=== PATIENT | female | born 1995 | race Caucasian/White ===

== ENCOUNTER 2021-05-09 10:50 | Inpatient (IN) | payer OTHER, SELFPAY ==
[2021-05-09] VITALS (73 sets, daily range): BP systolic 101–134; BP diastolic 42–96; PULSE 82–113; TEMP 36.5–37.1; O2SAT 84–100; BMI 39.2
--- NOTE | 2021-05-09 11:15 | OBADM ---
This patient, Julianne Marie, admitted to the OB room 116 on 05/09/21 at 1050 for observation for contractions. Patient/family oriented to hospital policies and general routines including ID bracelet, bed and alarms, visiting hours, pain management, procedures, bathroom and other care routines, personal items, smoking policy, room service/diet, and visiting hours. Patient/Family are encouraged to report perceived risks to care and to ask questions if they do not understand what they are told or what they should do.
[2021-05-09] MEDS: LACTATED RINGERS 1,000 ML 999 ML IV CONT (11:44)
[2021-05-09] MEDS: Please add drug allergy info to patient profile. 1 EACH XX (11:51)
[2021-05-09] MEDS: TERBUTALINE SULFATE 1 MG/ML VIAL 0.25 MG SUB-Q ×2 (12:45→13:46)
[2021-05-09] MEDS: LACTATED RINGERS 1,000 ML 125 ML IV CONT (12:46)
[2021-05-09] MEDS: NIFEdipine 10 MG CAPSULE PO ×2 (16:11→16:42)
[2021-05-09] MEDS: MAGNESIUM SULF 4 GM/WATER100ML 4 GM/100 ML BAG IVPB (19:00)
[2021-05-09] MEDS: BETAMETHASONE SOD PHOS/ACETATE 30 MG/5 ML VIAL 12 MG IM (19:16)
[2021-05-09] MEDS: MAGNESIUM SULF 20GM/WATER500ML 500 ML 50 MG IV CONT (19:30)
[2021-05-09 20:01] LABS: Basophils Percent Auto 0.2 % (0.2-1.2); Eosinophils Percent Auto 0.1 % (0-4.4); Hematocrit 35.4 % (37.0-47.0); Hemoglobin 10.9 g/dL (12.0-15.0); Immature Granulocyte Absolute 0.13 K/mm3 (0.00-0.031); Immature Granulocyte Percent A 0.9 % (0-0.5); Lymphocytes Absolute Auto 1.74 K/mm3 (0.9-3.2); Mean Corpuscular HGB Conc 30.8 g/dl (32-36); Mean Corpuscular Hemoglobin 27.3 pg (26-34); Mean Corpuscular Volume 88.7 fl (80-100); Mean Platelet Volume 10.8 fl (7.4-10.4); Monocytes Absolute Auto 0.6 K/mm3 (0.1-0.6); Monocytes Percent Auto 4.1 % (2.6-8.5); Neutrophils Percent Auto 82.7 % (45.5-73.1); Platelet Count Result 161 k/mm3 (150-375); Red Blood Count 3.99 M/mm3 (4.2-5.4); Red Cell Distribution Width 15.4 % (11.5-14.5); White Blood Count 14.5 K/mm3 (4.5-10.0)
[2021-05-09 20:05] LABS: Add Urine Microscopic? YES; Appearance Urine Clear (Clear); Bacteria Urine Trace /hpf; Bilirubin Urine Negative (Negative); Blood Urine Negative (Negative); Color Urine Yellow (Yellow); Glucose Urine UA Negative (Negative); Ketones Urine 2+ mg/dL (Negative); Leukocyte Esterase Ur Negative LEU/UL (Negative); Mucus Urine Rare /lpf; Nitrate Urine Negative (Negative); Protein Urine Negative (Negative); RBC Urine 0-2 /hpf (0-2); Specific Grav Ur 1.013 (1.001-1.035); Squamous Epithelial Cell Urine Rare /hpf (Few); Urobilinogen Urine Negative mg/dL (<2.0); WBC Urine 0-3 /hpf
[2021-05-09 20:50] LABS: Alanine Aminotransferase 15 U/L (4-35); Albumin Level 3.4 g/dL (3.5-5.1); Alkaline Phosphatase 110 U/L (38-126); Anion Gap 8 mmol/L (8-16); Aspartate Amino Transferase 19 U/L (14-36); Bilirubin,Total 0.4 mg/dL (0.2-1.3); Blood Urea Nitrogen 4 mg/dL (7-17); Calcium 9.2 mg/dL (8.4-10.2); Carbon Dioxide 23 mmol/L (22-30); Chloride 104 mmol/L (98-107); Estimated CRCL calculation 210 ml/min; Estimated Glomerular Filt Rate > 60; Glucose 68 mg/dL (65-110); Potassium 3.8 mmol/L (3.4-5.0); Sodium 135 mmol/L (137-145)
[2021-05-09] MEDS: DOCUSATE SODIUM 100 MG CAPSULE PO (23:41)
[2021-05-09] MEDS: fentaNYL CITRATE INJ (*CRX) 100 MCG/2 ML VIAL 50 MCG IV PUSH (23:41)
[2021-05-10] VITALS (109 sets, daily range): BP systolic 82–128; BP diastolic 41–73; PULSE 66–121; RESP 14–20; TEMP 36.2–37; O2SAT 92–100
[2021-05-10] MEDS: fentaNYL CITRATE INJ (*CRX) 100 MCG/2 ML VIAL 50 MCG IV PUSH (02:22)
--- NOTE | 2021-05-10 03:19 | PM.IMHP ---
H&P: HPI History of Present Illness Date/Time: 05/10/21 03:19 26 y/o at 35 weeks here with contractions. Prior , desires repeat. Also desires permanent contraception with tubal ligation. GBS unknown. Contractions initially treated with terbutaline, then nifedipine. No adequate response, so she was given magnesium sulfate IV and betamethasone. Contractions worsened nonetheless. Magnesium was increased to 3 g/h, and contractions continued every 3 min painfully. Cervix changed to 2 cm. Chief Complaint: Contractions Review of Systems Review of Systems: All systems reviewed & are unremarkable except as noted in HPI and below [facility] Past Medical History Medical History (Updated 05/10/21 @ 03:27 by Andrade Dennis MD) Bicornuate uterus Surgical History Surgical History (Updated 05/10/21 @ 03:27 by Andrade Dennis MD) History of 3 sections Meds Home Medications and Allergies Home Medications Medication Instructions Recorded Confirmed Type PNV cmb#95-ferrous fumarate-FA 1 tablet PO DAILY 05/09/21 05/09/21 History [] ferrous sulfate 325 mg PO DAILY 05/09/21 05/09/21 History folic acid 1 mg PO DAILY 05/09/21 05/09/21 History Allergies Allergy/AdvReac Type Severity Reaction Status Date / Time cefaclor [From Ceclor] Allergy Rash Verified 05/09/21 11:50 erythromycin base Allergy Rash Verified 05/09/21 11:50 Vital Signs Vital Signs - 24 hr 05/09/21 11:11 05/09/21 11:15 05/09/21 12:00 Temperature 36.6 C Pulse Rate 84 90 Blood Pressure 112/50 L 115/63 Pulse Oximetry 05/09/21 12:44 05/09/21 12:50 05/09/21 12:54 Temperature 36.5 C 36.5 C Pulse Rate 84 Blood Pressure 115/54 L Pulse Oximetry 05/09/21 13:00 05/09/21 13:46 05/09/21 14:00 Temperature Pulse Rate 93 99 99 Blood Pressure 119/44 L 108/54 L 102/42 L Pulse Oximetry 05/09/21 15:00 05/09/21 16:00 05/09/21 16:09 Temperature Pulse Rate 99 89 93 Blood Pressure 107/48 L 106/46 L 105/50 L Pulse Oximetry 05/09/21 16:10 05/09/21 16:11 05/09/21 16:42 Temperature 37.1 C Pulse Rate 93 102 H Blood Pressure 105/50 L 113/50 L Pulse Oximetry 05/09/21 17:00 05/09/21 18:00 05/09/21 19:00 Temperature 36.8 C Pulse Rate 95 96 Blood Pressure 125/54 L 114/59 L Pulse Oximetry 05/09/21 19:06 05/09/21 19:10 05/09/21 19:15 Temperature Pulse Rate 92 96 92 Blood Pressure 131/62 122/56 L 122/55 L Pulse Oximetry 05/09/21 19:20 05/09/21 19:25 05/09/21 19:30 Temperature 36.7 C Pulse Rate 92 90 90 Blood Pressure 133/96 H 125/47 L 115/68 Pulse Oximetry 84 L 100 05/09/21 19:35 05/09/21 19:40 05/09/21 19:45 Temperature Pulse Rate 92 90 97 Blood Pressure 130/59 L 123/64 128/66 Pulse Oximetry 99 99 97 05/09/21 19:50 05/09/21 19:55 05/09/21 20:00 Temperature Pulse Rate 93 95 Blood Pressure 130/59 L 134/64 Pulse Oximetry 100 100 100 05/09/21 20:02 05/09/21 20:09 05/09/21 20:14 Temperature Pulse Rate 94 Blood Pressure 121/63 Pulse Oximetry 100 100 05/09/21 20:19 05/09/21 20:24 05/09/21 20:29 Temperature Pulse Rate Blood Pressure Pulse Oximetry 100 100 99 05/09/21 20:30 05/09/21 20:34 05/09/21 20:39 Temperature Pulse Rate 86 Blood Pressure 112/66 Pulse Oximetry 100 99 05/09/21 20:44 05/09/21 20:49 05/09/21 20:59 Temperature Pulse Rate Blood Pressure Pulse Oximetry 99 100 100 05/09/21 21:00 05/09/21 21:04 05/09/21 21:09 Temperature Pulse Rate 84 Blood Pressure 124/52 L Pulse Oximetry 100 100 05/09/21 21:14 05/09/21 21:19 05/09/21 21:24 Temperature Pulse Rate Blood Pressure Pulse Oximetry 99 100 98 05/09/21 21:29 05/09/21 21:30 05/09/21 21:34 Temperature Pulse Rate 86 Blood Pressure 101/46 L Pulse Oximetry 98 98 05/09/21 21:39 05/09/21 21:44 05/09/21 21:49 Temperature Pulse Rate Blood Pressure
--- NOTE | 2021-05-10 03:24 | WPDANESEPPF ---
Anes - Initial Pre Proc Eval Procedure: Operation Date: 05/10/21 03:45 Proposed Procedures p Section - Andrade Dennis MD Date/Time: 05/10/21 03:24 Surgeon: Andrade Dennis MD Pre Op Diagnosis: Contractions Patient Data Age: 26 Gender: F Height: 1.65 m Weight: 106.8 kg Last Vital Signs Temp 36.7 C 05/09/21 19:30 Pulse 95 05/09/21 22:30 BP 129/55 L 05/09/21 22:30 Pulse Ox 100 05/10/21 03:19 Allergies Allergy/AdvReac Type Severity Reaction Status Date / Time cefaclor [From Ceclor] Allergy Rash Verified 05/09/21 11:50 erythromycin base Allergy Rash Verified 05/09/21 11:50 Home Medications Medication Instructions Recorded Confirmed Type PNV cmb#95-ferrous fumarate-FA 1 tablet PO DAILY 05/09/21 05/09/21 History [] ferrous sulfate 325 mg PO DAILY 05/09/21 05/09/21 History folic acid 1 mg PO DAILY 05/09/21 05/09/21 History Laboratory Tests 05/09/21 05/09/21 05/09/21 19:05 19:05 19:05 WBC 14.5 K/mm3 H K/mm3 (4.5-10.0) RBC 3.99 M/mm3 L M/mm3 (4.2-5.4) Hgb 10.9 g/dL L g/dL (12.0-15.0) Hct 35.4 % L % (37.0-47.0) MCV 88.7 fl fl (80-100) MCH 27.3 pg pg (26-34) MCHC 30.8 g/dl L g/dl (32-36) RDW 15.4 % H % (11.5-14.5) Plt Count 161 k/mm3 k/mm3 (150-375) MPV 10.8 fl H fl (7.4-10.4) Immature Gran % (Auto) 0.9 % H % (0-0.5) Neut % (Auto) 82.7 % H % (45.5-73.1) Lymph % (Auto) 12.0 % L % (18.3-44.2) [place] % (Auto) 4.1 % % (2.6-8.5) Eos % (Auto) 0.1 % % (0-4.4) Baso % (Auto) 0.2 % % (0.2-1.2) Lymph # (Auto) 1.74 K/mm3 K/mm3 (0.9-3.2) [place] # (Auto) 0.6 K/mm3 K/mm3 (0.1-0.6) Eos # (Auto) 0.0 K/mm3 K/mm3 (0-0.3) Baso # (Auto) 0.0 K/mm3 K/mm3 (0.0-0.1) Abs Immat Gran (auto) 0.13 K/mm3 H K/mm3 (0.00-0.031) Absolute Neuts (auto) 12.0 K/mm3 H K/mm3 (1.3-6.7) Absolute Nucleated RBC 0.0 K/mm3 K/mm3 (0.0-0.012) Nucleated RBC % 0.0 % % (0.0-0.2) Sodium 135 mmol/L L mmol/L (137-145) Potassium 3.8 mmol/L mmol/L (3.4-5.0) Chloride 104 mmol/L mmol/L (98-107) Carbon Dioxide 23 mmol/L mmol/L (22-30) Anion Gap 8 mmol/L mmol/L (8-16) BUN 4 mg/dL L mg/dL (7-17) Creatinine 0.40 mg/dL L mg/dL (0.7-1.0) Estim Creat Clear Calc 210 ml/min ml/min Estimated GFR > 60 (59 - ) Glucose 68 mg/dL mg/dL (65-110) Calcium 9.2 mg/dL mg/dL (8.4-10.2) Total Bilirubin 0.4 mg/dL mg/dL (0.2-1.3) AST 19 U/L U/L (14-36) ALT 15 U/L U/L (4-35) Alkaline Phosphatase 110 U/L U/L (38-126) Total Protein 6.0 g/dL L g/dL (6.3-8.2) Albumin 3.4 g/dL L g/dL (3.5-5.1) Urine Color Yellow (Yellow) Urine Appearance Clear (Clear) Urine pH 6.0 (5.0-9.0) Ur Specific [place] 1.013 (1.001-1.035) Urine Protein Negative mg/dL mg/dL (Negative) Urine Glucose (UA) Negative mg/dL mg/dL (Negative) Urine Ketones 2+ mg/dL H mg/dL (Negative) Ur Blood (Man) Negative (Negative) Urine Nitrate Negative (Negative) Urine Bilirubin Negative (Negative) Urine Urobilinogen Negative mg/dL mg/dL (<2.0) Leukocyte Esterase Rfl Negative ELSI/UL ELSI/UL (Negative) Urine RBC 0-2 /hpf /hpf (0-2) Urine WBC 0-3 /hpf /hpf Ur Squamous Epith Cells Rare /hpf /hpf (Few) Urine Bacteria Trace /hpf /hpf Urine Mucus Rare /lpf /lpf Patient hx anesthesia problems: none Family hx anesthesia problems: none [facility] Past Medical History Medical History (Reviewed 05/10/21 @ 03:24 by Sandra Gipson
--- NOTE | 2021-05-10 03:30 | WPDHPUPDATE1 ---
History and Physical Update Update Date/Time: 05/10/21 03:30 History and Physical has been reviewed, including an updated exam of the patient. There are NO changes in the patient's condition. Risks, benefits, and alternatives have been discussed and questions answered. Patient agrees to proceed with procedure.
[2021-05-10] MEDS: AMPICILLIN 2 GM/NS 100 ML 2 GM/100 ML BAG IVPB (03:46)
[2021-05-10] MEDS: KETOROLAC 30 MG/ML VIAL (*BKC) IV PUSH (05:15)
--- NOTE | 2021-05-10 05:18 | SUR.PHASEI ---
Pt has 700 ml remaining of 1000 LR with 20 units Pitocin
--- NOTE | 2021-05-10 05:21 | PM.OBPRVD ---
OB - Delivery Note Procedure Delivery date: 05/10/21 Procedure: Procedures Operation Date: 05/10/21 03:45 <No data on this case meets the specified criteria> Repeat low transverse delivery Bilateral tubal ligation via modified [place] technique events: Labor < 37 Weeks Intrapartal events: None Induction method: none Delivery monitor: external FHT and external uterine Route of delivery: Specimen: Yes (cord blood, placenta, segments of bilateral Fallopian tubes) Quantitative Blood Loss (ml): 815 Anesthesia type: Spinal Disposition: PACU Complications: None Narrative: Findings: Female in footling breech presentation. Bicornuate uterus with in the left uterine horn. Normal-appearing tubes and ovaries. Procedure: The patient was taken to the operating room where she was prepared and draped in the usual sterile fashion in dorsal supine position with a leftward tilt. She received ampicillin preoperatively. Spinal anesthesia was found to be adequate. A Pfannenstiel skin incision was made along the previous scar line and was carried through to the underlying layer of the fascia. The fascia was incised in the midline and the incision was extended laterally. The fascia was dissected free of the underlying rectus muscles. The rectus muscles were in the midline. The peritoneum was identified, tented up and entered sharply. The peritoneal incision was extended superiorly and inferiorly with good visualization of the bladder. The bladder blade was placed. The vesicouterine peritoneum was identified, tented up and entered sharply. The incision was extended laterally and the bladder flap was developed. The bladder blade was replaced. The uterus was then incised sharply in a transverse fashion along the lower uterine segment. The incision was extended laterally. Clear amniotic fluid was noted. The feet were grasped and the breech was delivered to the level of the scapulae. The arms were swept across the chest and delivered. The head was gently flexed and easily delivered. A loose nuchal cord was reduced. The nose and mouth were bulb suctioned. After a delay, the cord was clamped and cut. The was handed off the field. Cord blood was collected. The placenta was removed manually and was passed off the field. The uterus was exteriorized and cleared of all clots and debris. The uterine incision was reapproximated using 0 Monocryl in a running, locked fashion. Excellent hemostasis resulted as did excellent reapproximation of the normal anatomy. The left fallopian tube was then identified by following it out to the fimbriated end. It was grasped in the midportion with a [place] clamp and a loop of tube was ligated with a free tie of 0 plain gut. The tubal segment was then transected and the specimen was passed off to be sent to pathology. Hemostasis was excellent. Attention was turned to the right fallopian tube which was similarly identified, ligated and transected. Once again, excellent hemostasis resulted. The uterus was returned the abdomen. The pelvis was irrigated copiously with warmed normal saline. Rigorous hemostasis was assured. The fascial layer was reapproximated using 0 Vicryl in a running fashion. The skin was closed with a running, subcuticular stitch of 4 0 Vicryl. Dermaflex was applied externally. Sponge, lap, needle and instrument counts were correct. The patient was taken to the recovery room in stable condition. The went to the nursery in stable condition. I was present and scrubbed the entire procedure. [place] Baby Date of : 05/10/21 Time of : 04:35 Weeks of gestation at delivery: 35 Infant gender: Female Weight (pounds): 6 Weight (ounces): 5 presentation: breech Placenta delivery description: Manual Removal and Normal Configuration cord vessel description: 3 Vessels, Nuchal Cord and Delayed Cord Clamping score on
--- NOTE | 2021-05-10 05:27 | PM.OBDSVD ---
DS: Admitting Diagnosis Admitting Diagnosis Admitting Diagnosis: IUP at 35 weeks labor Prior Desired sterility DS: Discharge Diagnosis Discharge Diagnosis (1) Unwanted fertility: Code(s): Z30.09 - Encounter for other general counseling and advice on contraception Status: Acute (2) labor in third trimester: Code(s): O60.03 - labor without delivery, third trimester Status: Acute (3) Bicornuate uterus: Code(s): Q51.3 - Bicornate uterus Status: Chronic OB - DS: Summary OB Procedures : None OB Procedures Intrapartum: OB Procedures: : None Peripartum Data Procedures: Procedures Operation Date: 05/10/21 03:45 <No data on this case meets the specified criteria> Repeat LTCS with BTL DS: Data Data Completed and Pending Labs on day of discharge: Labs from last 24 hours 05/10/21 05/09/21 05/09/21 03:27 19:05 19:05 WBC RBC Hgb Hct MCV MCH MCHC RDW Plt Count MPV Immature Gran % (Auto) Neut % (Auto) Lymph % (Auto) [place] % (Auto) Eos % (Auto) Baso % (Auto) Lymph # (Auto) [place] # (Auto) Eos # (Auto) Baso # (Auto) Abs Immat Gran (auto) Absolute Neuts (auto) Absolute Nucleated RBC Nucleated RBC % Sodium 135 L Potassium 3.8 Chloride 104 Carbon Dioxide 23 Anion Gap 8 BUN 4 L Creatinine 0.40 L Estim Creat Clear Calc 210 Estimated GFR > 60 Glucose 68 Calcium 9.2 Total Bilirubin 0.4 AST 19 ALT 15 Alkaline Phosphatase 110 Total Protein 6.0 L Albumin 3.4 L Urine Color Yellow Urine Appearance Clear Urine pH 6.0 Ur Specific [place] 1.013 Urine Protein Negative Urine Glucose (UA) Negative Urine Ketones 2+ H Ur Blood (Man) Negative Urine Nitrate Negative Urine Bilirubin Negative Urine Urobilinogen Negative Leukocyte Esterase Rfl Negative Urine RBC 0-2 Urine WBC 0-3 Ur Squamous Epith Cells Rare Urine Bacteria Trace Urine Mucus Rare Blood Type A Positive Antibody Screen Negative 05/09/21 19:05 WBC 14.5 H RBC 3.99 L Hgb 10.9 L Hct 35.4 L MCV 88.7 MCH 27.3 MCHC 30.8 L RDW 15.4 H Plt Count 161 MPV 10.8 H Immature Gran % (Auto) 0.9 H Neut % (Auto) 82.7 H Lymph % (Auto) 12.0 L [place] % (Auto) 4.1 Eos % (Auto) 0.1 Baso % (Auto) 0.2 Lymph # (Auto) 1.74 [place] # (Auto) 0.6 Eos # (Auto) 0.0 Baso # (Auto) 0.0 Abs Immat Gran (auto) 0.13 H Absolute Neuts (auto) 12.0 H Absolute Nucleated RBC 0.0 Nucleated RBC % 0.0 Sodium Potassium Chloride Carbon Dioxide Anion Gap BUN Creatinine Estim Creat Clear Calc Estimated GFR Glucose Calcium Total Bilirubin AST ALT Alkaline Phosphatase Total Protein Albumin Urine Color Urine Appearance Urine pH Ur Specific [place] Urine Protein Urine Glucose (UA) Urine Ketones Ur Blood (Man) Urine Nitrate Urine Bilirubin Urine Urobilinogen Leukocyte Esterase Rfl Urine RBC Urine WBC Ur Squamous Epith Cells Urine Bacteria Urine Mucus Blood Type Antibody Screen Discharge Plan Discharge Attending physician on discharge: Andrade Dennis Discharging Clinician: Andrade Dennis Patient Disposition: Home, Self-Care Activity: may shower, may drive after 2 weeks and pelvic rest Diet: regular Wound Care Instructions: incision open to air Discharge Instructions: Call or return if temperature above 100.4? F, increased abdominal pain, increased vaginal bleeding or any new problems. Stand Alone Forms: General Discharge Information Follow-up/Referrals: Andrade Dennis MD [Physician] - 4 Weeks Discharge Medications: New hydrocodone-acetaminophen 5-325 mg tablet 1 - 2 tablet PO Q6H PRN (Reason: pain) Qty: 30 RF: 0 ibuprofen 600 mg tablet 600 mg PO Q6H PRN (Reason: cramps) Qty: 30 RF: 0 f
[2021-05-10] MEDS: LACTATED RINGERS 1,000 ML 125 ML IV CONT (06:57)
[2021-05-10] MEDS: diphenhydrAMINE HCl INJ 50 MG/ML VIAL 25 MG IV PUSH (07:18)
[2021-05-10] MEDS: LORATADINE 10 MG TABLET PO (07:24)
--- NOTE | 2021-05-10 07:37 | PC.NURSE ---
Pt taken into nursery per stretcher to see prior to moving up to mom/baby unit.
--- NOTE | 2021-05-10 08:14 | PC.NURSE ---
Patient transferred to post room #282 via stretcher from labor and delivery. Support person present. Oriented to unit, room, information board, rooming in, admission packet and security measures. Patient verbalizes understanding.
[2021-05-10] MEDS: OXYTOCIN 30 UNITS/NS 500 ML 30 UNITS/500 ML BAG 125 UNITS IV CONT (08:35)
--- NOTE | 2021-05-10 12:34 | WPDANLDNPN2 ---
Anes-Prog Note L&D-Neuraxial Date/Time: 05/10/21 12:34 Neuraxial medications: intrathecal PF morphine Opiod-related complaints: none Patient feedback: Patient satisfied with post-operative pain management.
--- NOTE | 2021-05-10 12:34 | WPDANLDPN2 ---
Anes-Prog Note L&D Date/Time: 05/10/21 12:34 Comfortable throughout: section Neuraxial method: spinal Epidural/Spinal procedure site: clean & non-tender Neuro status: Neuro function grossly intact. Cardiovascular status: normal Respiratory status: normal Airway patency: baseline Mental status: baseline Post-Op hydration status: normal Vital Signs: Last Vital Signs Temp 37.0 C 05/10/21 08:25 Pulse 76 05/10/21 08:25 Resp 16 05/10/21 08:25 BP 117/56 L 05/10/21 08:25 Pulse Ox 98 05/10/21 08:25 Pain score (VAS): 0 I/O: Intake & Output 05/09/21 05/10/21 05/10/21 23:59 07:59 15:59 Intake Total 100 1663 Output Total 2238 Balance 100 -575 Post-procedural complaints: none Patient feedback: Patient satisfied with anesthetic care.
[2021-05-10] MEDS: DOCUSATE SODIUM 100 MG CAPSULE PO (16:42)
[2021-05-10] MEDS: IBUPROFEN 600 MG TABLET PO (16:43)
[2021-05-10] MEDS: DEXTROSE 5%/0.45% SOD CHL 1,000 ML 125 ML IV CONT (20:27)
[2021-05-10] MEDS: SIMETHICONE 80 MG TAB.CHEW PO (20:36)
[2021-05-11] MEDS: HYDROcodone/acetaminophen (*CRX) 5-325 MG TABLET 1 TAB PO ×2 (01:16→15:50)
[2021-05-11] MEDS: IBUPROFEN 600 MG TABLET PO ×3 (01:16→15:51)
[2021-05-11 03:50] VITALS: BP 95/43; PULSE 64; RESP 16; TEMP 36.9; O2SAT 96
[2021-05-11] MEDS: KCL 20 MEQ/D5/0.45% SOD CHL 1,000 ML 125 ML IV CONT (04:01)
[2021-05-11 07:30] VITALS: BP 97/40; PULSE 77; RESP 16; TEMP 37.1; O2SAT 99
[2021-05-11] MEDS: MULTIVIT/MIN/PREN/FOL AC/IRON TABLET 1 TAB PO (08:08)
[2021-05-11] MEDS: SIMETHICONE 80 MG TAB.CHEW PO ×2 (08:09→15:53)
[2021-05-11] MEDS: POLYSACCHARIDE IRON COMPLEX 150 MG CAPSULE PO ×2 (08:09→15:50)
[2021-05-11] MEDS: DOCUSATE SODIUM 100 MG CAPSULE PO ×2 (08:09→15:50)
[2021-05-11 08:23] LABS: Basophils Percent Auto 0.3 % (0.2-1.2); Eosinophils Absolute Auto 0.1 K/mm3 (0-0.3); Eosinophils Percent Auto 0.4 % (0-4.4); Hematocrit 30.7 % (37.0-47.0); Hemoglobin 9.6 g/dL (12.0-15.0); Immature Granulocyte Absolute 0.22 K/mm3 (0.00-0.031); Immature Granulocyte Percent A 1.7 % (0-0.5); Lymphocytes Percent Auto 21.8 % (18.3-44.2); Mean Corpuscular HGB Conc 31.3 g/dl (32-36); Mean Corpuscular Hemoglobin 27.9 pg (26-34); Mean Corpuscular Volume 89.2 fl (80-100); Mean Platelet Volume 10.2 fl (7.4-10.4); Monocytes Absolute Auto 0.7 K/mm3 (0.1-0.6); Monocytes Percent Auto 5.2 % (2.6-8.5); Neutrophils Percent Auto 70.6 % (45.5-73.1); Platelet Count Result 151 k/mm3 (150-375); Red Blood Count 3.44 M/mm3 (4.2-5.4); Red Cell Distribution Width 15.8 % (11.5-14.5); White Blood Count 12.8 K/mm3 (4.5-10.0)
--- NOTE | 2021-05-11 08:30 | PC.NURSE ---
Consult with pt., mother states infant has had issues with latching and maintaining latch. Mother breastfed 3 other children without issues and is concerned is not latching. Discussed mothers of infants may have challenges of establishing . Infants born early often have less stamina and may be sleepier, have more difficulties with latch, suck and swallow, maintaining body temperature. The potential problem for ?s having difficulties establishing are at risk for weight loss, slow weight gain, dehydration, low blood sugar, low body temperature and jaundice. Potential problems for mother of early infants are establishing a good milk supply due to lack of adequate stimulation of supply. Mother has been given a hospital pump and is pumping at times. Suggested mother attempt infant to breast each feeding, then supplement as ICP has ordered and pump for 15 minutes to stimulate supply. Requested mother call out next feeding for observation.
--- NOTE | 2021-05-11 08:45 | P.PNOB_ITS ---
OB - PN: Subj Subjective Date/time seen: 05/11/21 0845 Narrative: Pain OK. Tolerating diet. OB - PN: Obj Data Labs CBC & Chem 7: 05/11/21 08:09 05/09/21 19:05 Labs: Laboratory Results - last 24 hr 05/11/21 08:09 WBC 12.8 H RBC 3.44 L Hgb 9.6 L Hct 30.7 L MCV 89.2 MCH 27.9 MCHC 31.3 L RDW 15.8 H Plt Count 151 MPV 10.2 Immature Gran % (Auto) 1.7 H Neut % (Auto) 70.6 Lymph % (Auto) 21.8 [place] % (Auto) 5.2 Eos % (Auto) 0.4 Baso % (Auto) 0.3 Lymph # (Auto) 2.80 [place] # (Auto) 0.7 H Eos # (Auto) 0.1 Baso # (Auto) 0.0 Abs Immat Gran (auto) 0.22 H Absolute Neuts (auto) 9.0 H Absolute Nucleated RBC 0.0 Nucleated RBC % 0.0 OB - PN A/P Plan Comments: A: POD#1, doing well. P: Routine care. Exam Narrative: Exam Narrative: AVSS I/O OK ABD soft, nontender, fundus firm. Incision c/d/i. EXT nontender
--- NOTE | 2021-05-11 12:10 | PC.NURSE ---
Mother called out for assist with feeding. is able to freely thrust tongue past gum ridge and flange both lips. Skin is intact on both nipples, no redness and bruising noted. Reviewed feeding cues, frequencies, duration of feedings, feeding elimination flow sheet, and signs of adequate intake. Demonstrated stimulation techniques to wake for feeding. Assisted with to breast. Reviewed positioning/alignment in cross cradle, holding breast in ?U? hold and guided asymmetrical latch on. Discussed rational for each. Infant able to latch correctly. Infant nursed eagerly for short bursts with steady draws and occasional wallowing noted. Suggested mother stimulate while feeding to increase stimulate, increase intake and to assist with maintaining deep latch. Reviewed signs of a correct latch, effective nursing and suck swallow ratio. Infant would slip to shallow latch, mother reports tenderness. Demonstrated how to adjust latch more deeply while feeding. Mother reports she can feel change in latch and has no tenderness. Nipple care reviewed of lanolin after feedings, warm compresses as needed. Discussed effective vs ineffective nursing, advised mother infant is eager and nursing well for 35 weeks, minimal milk transfer is noted. Mother will continue with supplementing after each and pumping for 15 minutes. Instructed mother to call out for RN assistance if she is unable to latch infant for feeding or she has discomfort with nursing.
[2021-05-11 19:45] VITALS: BP 116/53; PULSE 96; RESP 16; TEMP 37; O2SAT 96
[2021-05-12] MEDS: HYDROcodone/acetaminophen (*CRX) 5-325 MG TABLET 1 TAB PO ×4 (02:51→16:36)
[2021-05-12] MEDS: IBUPROFEN 600 MG TABLET PO ×3 (02:52→16:36)
[2021-05-12 08:00] VITALS: BP 112/59; PULSE 84; RESP 18; TEMP 36.7
[2021-05-12] MEDS: MULTIVIT/MIN/PREN/FOL AC/IRON TABLET 1 TAB PO (08:57)
[2021-05-12] MEDS: SIMETHICONE 80 MG TAB.CHEW PO (08:57)
[2021-05-12] MEDS: POLYSACCHARIDE IRON COMPLEX 150 MG CAPSULE PO ×2 (08:58→16:36)
[2021-05-12] MEDS: DOCUSATE SODIUM 100 MG CAPSULE PO ×2 (08:58→16:36)
--- NOTE | 2021-05-12 10:50 | PC.NURSE ---
Consult with pt., mother reports she puts infant to breast each feeding, followed with supplementation of EBM/formula of 25-30 mls and pump. Infant is eagerly latching without difficulties or discomfort. nurses with long steady rhythmic draws with freq pausing. Mother will stimulate, infant responds with good bursts of effective nursing. Observed mother pumping, no pain or difficulties noted.
--- NOTE | 2021-05-12 12:40 | PM.OBPNVD ---
OB - PN: Subj Subjective Date/time seen: 05/12/21 12:40 Narrative: Pain OK. Tolerating diet. Had some bloody drainage from the central portion of the incision yesterday, but this has resolved. OB - PN: Obj Data Labs CBC & Chem 7: 05/11/21 08:09 05/09/21 19:05 OB - PN A/P Plan Comments: A: POD#2, doing well. P: Routine care. Exam Narrative: Exam Narrative: AVSS ABD soft, nontender, fundus firm. Incision c/d/i. I cannot express any liquid from the incision. EXT nontender
[2021-05-12 20:00] VITALS: BP 131/54; PULSE 84; RESP 15; TEMP 36.9; O2SAT 98
[2021-05-13] MEDS: HYDROcodone/acetaminophen (*CRX) 5-325 MG TABLET 1 TAB PO ×2 (00:12→09:59)
[2021-05-13] MEDS: IBUPROFEN 600 MG TABLET PO ×2 (00:12→09:59)
[2021-05-13 07:30] VITALS: BP 120/59; PULSE 77; RESP 20; TEMP 36.6
--- NOTE | 2021-05-13 09:00 | PC.NURSE ---
Mother is able to independently latch with appropriate positioning/alignment. She denies any nipple discomfort, is feeding as required and waking infant to feed if needed. Infantis currently meeting outcomes for weight, output, jaundice and feeding frequencies. Mother will continue on current feeding plan of putting to breast each feeding limiting to 15 minutes, then supplementing EBM/formula and pumping. Mother feels confident to continue feeding plan at home. Mother is pumping without difficulties or discomfort and has a Medela pump for home use. Discussed infant may want to increase supplementation, advised to increase as infant desires. may not want to feed for 4 hours with increase supplementation, mother will then pump on infant feeding schedule increasing to 20 minutes each session. Reviewed signs may wish to decrease/discontinue supplementation. Advised to have pre/post feeding evaluation by follow up RN, ICP, WIC or before supplementation is discontinued. Reviewed transition to breast milk, signs of adequate intake, and engorgement/relief. Instructed to call ICP if intake/output less than required. Reviewed regular medications mother is taking. Information provided per [place]. Reviewed community resources on the [facility] website and in the Mom/Baby guide. Information on outpatient services provided. Mother has no further questions at this time.
--- NOTE | 2021-05-13 09:12 | PM.OBPNVD ---
OB - PN: Subj Subjective Date/time seen: 05/13/21 09:12 Narrative: Pain OK. Tolerating diet. Would like to go home. OB - PN: Obj Data Labs CBC & Chem 7: 05/11/21 08:09 05/09/21 19:05 OB - PN A/P Plan Comments: A: POD#3, doing well. P: Home to f/u 4 weeks. Exam Narrative: Exam Narrative: AVSS ABD soft, nontender, fundus firm. Incision c/d/i. A little serosanguineous drainage on pad, but I cannot express any again today. EXT nontender
[2021-05-13] MEDS: SIMETHICONE 80 MG TAB.CHEW PO (09:59)
[2021-05-13] MEDS: POLYSACCHARIDE IRON COMPLEX 150 MG CAPSULE PO (09:59)
[2021-05-13] MEDS: DOCUSATE SODIUM 100 MG CAPSULE PO (09:59)
[2021-05-13] MEDS: MULTIVIT/MIN/PREN/FOL AC/IRON TABLET 1 TAB PO (10:03)
[2021-05-14 11:11] VITALS: BP 121/59; PULSE 78; RESP 20; TEMP 37; O2SAT 100
== END 2021-05-13 12:54 | disposition home or self-care (01) | DRG 540 ==
LOC: ANHOBPP 05-10 03:10 → ANHLDR 05-10 05:29 → ANHOB2 05-13 11:04 → ANHLDR 05-25 12:58 → ANHOB2 05-25 12:58 → ANHOBPP 05-25 12:58
PROVIDERS: Admitting Provider Obstetrics & Gynecology; Visit Provider Obstetrics & Gynecology
PROC: 10D00Z1 Extraction of Products of Conception, Low, Open Approach (ICD-10-PCS; CPT 59514; principal; 2021-05-10 03:45)
DX: O60.14X0 Preterm labor third trimester with preterm delivery third trimester, not applicable or unspecified (principal); Z37.0 Single live birth; Z3A.35 35 weeks gestation of pregnancy; O34.211 Maternal care for low transverse scar from previous cesarean delivery; O34.03 Maternal care for unspecified congenital malformation of uterus, third trimester; Q51.3 Bicornate uterus; O99.214 Obesity complicating childbirth; E66.9 Obesity, unspecified; Z30.2 Encounter for sterilization; O69.81X0 Labor and delivery complicated by cord around neck, without compression, not applicable or unspecified; O32.8XX0 Maternal care for other malpresentation of fetus, not applicable or unspecified
CPT/HCPCS: 36415; 80053; 81001; 85025; 86850; 86900; 86901; 88302; 88307; A9270; J0131; J0290; J0702; J1100; J1200; J1885; J2274; J2370; J2405; J2590; J3010; J3105; J3475; J3480; J7120

== ENCOUNTER 2023-08-24 01:53 | Day surgery (SDC) | payer OTHER, SELFPAY ==
--- NOTE | 2023-08-15 17:26 | PC.NURSE ---
Report to the Outpatient Waiting Room, entrance under the green pavilion located off [facility], at time 1100 on date 08/24/23. Planned Procedure Time: 1300. Time changes happen often and if your time is changed the preop area will call you the afternoon before. - You and your visitor will be asked to self-screen and do not enter if you have any COVID symptoms. - A mask is optional within the hospital at this time. Patients may have clear liquids (water, carbonated beverages, clear teas, apple juice) until 3 hours prior to surgery with a maximum of 20 ounces. 1000 - No food from midnight until time of surgery - Infants may have breast milk until 4 hours before surgery, formula 6 hours prior to surgery. - Children will be allowed to drink immediately following surgery. If applicable, please bring a bottle or sippy cup to assist with drinking. Juice, water, soda, and popsicles are readily available. For infants on formula, please bring formula the day of surgery. Pacifiers are allowed. Take the following medications with a SIP of water the morning of surgery: NONE DO NOT STOP ANY OF YOUR OTHER PRESCRIPTION MEDICATIONS PRIOR TO SURGERY ?EXCEPT THE FOLLOWING Medications to discontinue per physician N/A Date to take last dose N/A Please no make-up, nail setswana, hairspray, perfume, deodorant, or body powder the day of surgery. No jewelry (including any body piercings) or valuables the day of surgery, leave them at home. Please take a shower or bath the night before, or the morning of, surgery with an antibacterial soap. Wear comfortable, loose fitting clothing. Children are encouraged to wear pajamas. - Jewelry must be removed prior to entering the operating room. Rings and piercings that are not removed may be cut off. - The hospital will not accept responsibility for valuables. - Please leave all valuables, including medications, at home the day of surgery. If you are going home after surgery, a licensed racecar driver must drive you home. - NO public transportation without another adult if you receive anesthesia. - We recommend that an adult stay with you for 24 hours following discharge. - We also recommend that you do not drive, make important decision, drink alcoholic beverages, or take any drugs that were not prescribed by your health care provider for at least 24 hours after your discharge time. For Pediatric surgeries, we recommend two adults accompany the child home. Follow any additional instructions given to you from your surgeon. If you or anyone in your household have experienced Covid symptoms in the past week, please notify your surgeon or the nurse liaison at the phone number below for possible testing. Telephone instructions given to PATIENT- ASA NASH and asked if any additional questions and then verbalized understanding. Patient advised to call surgeon office or pre surgery nurse liaison [phone] if any additional questions.
[2023-08-15 17:30] VITALS: BMI 32.8
[2023-08-24 10:35] VITALS: BP 125/53; PULSE 63; RESP 16; TEMP 36.6; O2SAT 100; BMI 32.8
[2023-08-24] MEDS: LACTATED RINGERS 1,000 ML 30 ML IV CONT (11:40)
[2023-08-24] MEDS: ACETAMINOPHEN 500 MG TABLET 1000 MG PO (11:49)
--- NOTE | 2023-08-24 12:50 | P.PNAN_ITS ---
Anes - Initial Pre Proc Eval Procedure: Operation Date: 08/24/23 13:00 Proposed Procedures p Hysteroscopy, Dilation and Curettage, Maria D Endometrial Ablation - Andrade Dennis MD Date/Time: 08/24/23 12:50 Surgeon: Andrade Dennis MD Pre Op Diagnosis: irregular bleeding Patient Data Age: 28 Gender: F Height: 1.65 m Weight: 89.5 kg Allergies Allergy/AdvReac Type Severity Reaction Status Date / Time cefaclor [From Ceclor] Allergy Rash Verified 08/15/23 17:18 erythromycin base Allergy Rash Verified 08/15/23 17:18 Patient hx anesthesia problems: none Family hx anesthesia problems: none Results Review: All pre-operative results and documents have been reviewed as part of the pre- operative evaluation. [facility] Past Medical History Medical History (Updated 05/10/21 @ 05:30 by Andrade Dennis MD) Bicornuate uterus Surgical History Surgical History (Updated 05/10/21 @ 03:27 by Andrade Dennis MD) History of 3 sections Social History Social History Smoking packs per day: 0.5 Smoking cigarettes per day: 10.0 Years smoked: 10 Smoking pack-years: 5.00 Smoking status: Former smoker Substance use: former Last use: 2015 Gender identity (if verbalized by the patient): Female Sexual Orientation (if Verbalized by the Patient): Straight or Heterosexual Spiritual care concerns: No Anes - Eval Final PreProcedure Day of Procedure 08/24/23 12:50 Patient weight: obese Heart: regular rate and rhythm Lungs: clear to auscultation Airway: Mallampati scale class II Neurological: alert and oriented Last oral intake: >/= 8 hours ASA classification: II Emergent: no Anesthetic plan: proceed Anesthesia type and monitoring: general GIVS and standard monitoring Results Review: All pre-operative results and documents have been reviewed as part of the pre- operative evaluation. Informed Consent: The patient's anesthetic plan and its attendant risks and benefits were discussed with the patient/family/POA. Questions were solicited and answers provided to the satisfaction of the patient/family/POA.
--- NOTE | 2023-08-24 12:55 | PM.IMHP ---
H&P: HPI History of Present Illness Date/Time: 08/24/23 12:55 Chief Complaint: Heavy periods Narrative: 28 y/o who has heavy, painful menses lasting 7 days each. She has had a tubal ligation. She has a septum in the uterus, but ultrasound exam suggests the septum is not terribly deep. She would like to try hysteroscopy, D&C and endometrial ablation, if possible. Review of Systems Review of Systems: All systems reviewed & are unremarkable except as noted in HPI and below PMFSH Past Medical History Medical History Bicornuate uterus Surgical History Surgical History History of 3 sections Social History Social History Smoking packs per day: 0.5 Smoking cigarettes per day: 10.0 Years smoked: 10 Smoking pack-years: 5.00 Smoking status: Former smoker Substance use: former Last use: 2015 Gender identity (if verbalized by the patient): Female Sexual Orientation (if Verbalized by the Patient): Straight or Heterosexual Spiritual care concerns: No Meds Home Medications and Allergies Allergies Allergy/AdvReac Type Severity Reaction Status Date / Time cefaclor [From Ceclor] Allergy Rash Verified 08/15/23 17:18 erythromycin base Allergy Rash Verified 08/15/23 17:18 Exam Const: Orientation/consciousness: patient oriented x3 Other: Well-developed, well-nourished female in no acute distress. Neck: Thyroid: thyroid normal Lymphatic: no lymphadenopathy noted (in neck, axilla or inguinal nodes) Resp: Effort & Inspection: normal respiratory effort Auscultation: clear to auscultation bilaterally Cardio: Rate: regular rate Rhythm: regular rhythm Heart sounds: S1 normal heart sound present and S2 normal heart sound present GI: Other: ABD: Soft, nontender, nondistended. No guarding or rebound tenderness. No hepatosplenomegaly. : General: Yes no CVA tenderness Other: External genitalia: normal female hair distribution, without lesion. Urethral meatus: no lesion, non prolapsed. Bladder: no mass, nontender Vagina: well-estrogenized, without lesion or discharge. No cystocele or rectocele. Cervix: no lesion or discharge. Uterus: small, anteverted, freely mobile, nontender Adnexa: no mass or tenderness. Anus/perineum: no lesions, nontender Back/Spine/Pelvis: Back: no CVA tenderness Skin: General skin exam: normal color and no rashes or lesions noted Neuro: General: patient oriented x3 Extrem: Other: Extremities: nontender with no edema Psych: Mental Status: mental status grossly normal Affect: normal affect Assessment and Plan Assessment and plan (1) Menometrorrhagia: Code(s): N92.1 - Excessive and frequent menstruation with irregular cycle Status: Acute Assessment and Plan: A: Menometrorrhagia with dysmenorrhea. P: We have discussed continued medical management vs surgical management. She prefers the latter. I have offered hysteroscopy with dilation and sharp curettage and endometrial ablation. 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 She understands this might not be the case, in which case we will not perform the endometrial ablation. Furthermore, she understands risks of surgery to include risks of anesthesia, risks of pain, infection, bleeding, blood products, thromboembolic phenomena and damage to adjacent structures such as bowel, bladder, ureters, blood vessels and nerves. She understands all these risks and elects to proceed with surgery. (2) Dysmenorrhea: Code(s): N94.6 - Dysmenorrhea, unspecified Status: Acute
--- NOTE | 2023-08-24 13:01 | WPDHPUPDATE1 ---
History and Physical Update Update Date/Time: 08/24/23 13:01 History and Physical has been reviewed, including an updated exam of the patient. There are NO changes in the patient's condition. Risks, benefits, and alternatives have been discussed and questions answered. Patient agrees to proceed with procedure.
[2023-08-24] MEDS: LIDOCAINE HCL 1% LOCAL INJ 10 ML VIAL INFILTRATE (13:37)
[2023-08-24 13:51] VITALS: BP 124/63; PULSE 67; RESP 15; O2SAT 98
--- NOTE | 2023-08-24 13:54 | W.PM.PROC2 ---
Procedure Note - Detailed Date of Procedure 08/24/23 Pre-op Diagnosis Menometrorrhagia Dysmenorrhea Post-op Diagnosis Same Procedure Performed Hysteroscopy Dilation and sharp curettage Surgeon Andrade Dennis MD Anesthesia MAC and Local (1% lidocaine) Findings Two cervices and a distal vaginal septum were seen. Endometrial cavities did not communicate, and both cavities were otherwise unremarkable. Both tubal ostia were seen. Description of Procedure The patient was taken to the operating room where she was prepared and draped in the usual sterile fashion in the dorsal lithotomy position. The bladder was drained with a red rubber catheter. A sterile speculum was placed into the vagina. At this point a vaginal septum and two cervices were seen. The anterior lip of the right cervix was grasped with single-tooth tenaculum. Five mL of 1% lidocaine was administered in a paracervical block. The cervix was then gently dilated using Hegar dilators until a 7 mm dilator could be passed. Hysteroscopy was performed using sterile saline as a distention medium. Findings are as noted above. Sharp curettage was then performed, and endometrial curettings were collected on a Telfa pad and passed off to be sent to pathology. The left cervix was similarly grasped and infiltrated with a paracervical block with 5 mL of 1% lidocaine, dilated, and curetted. Endometrial ablation was not attempted. The tenaculum was removed. Hemostasis was excellent. Sponge, lap, needle and instrument counts were correct. The patient was awakened and taken to the recovery room in stable condition. I was present and scrubbed through the entire procedure. Estimated Blood Loss 5 Drains No Packing No Pathology Yes (Endometrial curettings) Complications None Condition Stable Disposition PACU
[2023-08-24 14:20] VITALS: BP 133/70; PULSE 65; RESP 18; O2SAT 98
[2023-08-24 14:50] VITALS: BP 129/74; PULSE 67; RESP 16; O2SAT 98
[2023-08-24 15:16] VITALS: BP 113/62; PULSE 77; RESP 16; O2SAT 98
== END 2023-08-24 15:20 | disposition home or self-care (01) ==
PROVIDERS: PCP Emergency Medicine; Visit Provider Obstetrics & Gynecology
PROC: 0U5B8ZZ Destruction of Endometrium, Via Natural or Artificial Opening Endoscopic (ICD-10-PCS; CPT 58563; principal; 2023-08-24 13:00)
DX: N92.1 Excessive and frequent menstruation with irregular cycle (principal); N94.6 Dysmenorrhea, unspecified; Q51.28 Other and unspecified doubling of uterus; Z87.891 Personal history of nicotine dependence; E66.9 Obesity, unspecified; Z68.32 Body mass index [BMI] 32.0-32.9, adult
CPT/HCPCS: 58558; 88305; A9270; J2250; J2704; J7120